=== PATIENT | female | born 1960 | race Caucasian/White ===

== ENCOUNTER 2022-05-19 09:16 | Outpatient (CLI) | payer OTHER, SELFPAY | END 2022-05-19 09:17 | disposition home or self-care (01) | PROVIDERS: Visit Provider Registered Nurse | DX: Z01.419 Encounter for gynecological examination (general) (routine) without abnormal findings (principal); E78.5 Hyperlipidemia, unspecified; E78.1 Pure hyperglyceridemia; I10 Essential (primary) hypertension; Z13.1 Encounter for screening for diabetes mellitus | CPT/HCPCS: 80061; 82565; 82947; 84520 ==

== ENCOUNTER 2023-05-22 09:36 | Outpatient (CLI) | payer OTHER, SELFPAY | END 2023-05-22 09:37 | disposition home or self-care (01) | PROVIDERS: PCP Physician Assistant; Visit Provider Physician Assistant | DX: I10 Essential (primary) hypertension (principal); Z13.220 Encounter for screening for lipoid disorders | CPT/HCPCS: 80048; 80061 ==